=== PATIENT | female | born 1995 | race Caucasian/White ===

== ENCOUNTER 2020-10-20 18:34 | Emergency (ER) | payer MEDICAID ==
[~2020-10-20] VITALS: Ht 134.6 cm; Wt 54.0 kg
--- NOTE | 2020-10-20 20:02 | NUR ---
PATIENT GIVEN URINE CUP AND INSTRUCTIONS ON URINE COLLECTION.
[2020-10-20 20:12] LABS: BASOPHILS % (AUTO) 1 % (0-1); EOSINOPHILS % (AUTO) 1 % (1-7); LYMPHOCYTES % (AUTO) 32 % (22-44); MEAN CORPUSCULAR HEMOGLOBIN 30.5 pg (27.0-34.8); MEAN PLATELET VOLUME 8.4 fL (7.4-10.4); MONOCYTES % (AUTO) 8 % (2-9); NEUTROPHILS % (AUTO) 59 % (42-75); PLATELET COUNT 316 x10^3/uL (130-400); RED BLOOD COUNT 4.44 x10^6/uL (3.82-5.3); RED CELL DISTRIBUTION WIDTH 13.4 % (9.6-15.2)
[2020-10-20 20:17] LABS: MD NO
[2020-10-20 20:25] LABS: ALANINE AMINOTRANSFERASE 35 U/L (12-78); ALBUMIN 4.6 g/dL (3.4-5.0); ANION GAP 10 mmol/L (5-15); CALCIUM 9.5 mg/dL (8.5-10.1); CHLORIDE 110 mmol/L (98-107); CREATININE 0.81 mg/dL (0.55-1.02)
[2020-10-20 20:32] LABS: MICROSCOPIC AUTO
[2020-10-20 20:35] LABS: ALKALINE PHOSPHATASE 79 U/L (45-117); BILIRUBIN,TOTAL 0.3 mg/dL (0.2-1.0); TOTAL PROTEIN 8.3 g/dL (6.4-8.2)
--- NOTE | 2020-10-20 22:00 | NUR ---
PATIENT CLEARED FOR DISCHARGE. NO NOTED ACUTE DISTRESS. PATIENT AMBUALTORY WITH SIGNIFICANT OTHER WITHOUT COMPLICATIONS. PATIENT VERBALIZED UNDERSTANDING OF SELF CARE AND FOLLOW UP CARE AT HOME.
[2020-10-20 22:01] VITALS: BP 99/57
== END 2020-10-20 22:03 | disposition home or self-care (01) ==
LOC: ED 18:55
DX: R42 Dizziness and giddiness (principal); R11.0 Nausea; R51.9 Headache, unspecified
CPT/HCPCS: 36415; 80053; 81001; 83735; 84443; 84703; 85025; 87086; 93005; 99284